=== PATIENT | male | born 1975 | race Caucasian/White ===

== ENCOUNTER 2023-02-22 16:55 | Inpatient (IN) | payer OTHER ==
[2023-02-22 17:42] VITALS: BMI 30.1
[2023-02-22] MEDS ORDERED: NICOTINE 10 MG CARTRIDGE (INHALER) IH PRN (18:28)
[2023-02-22] MEDS ORDERED: hydrOXYzine PAMOATE 25 MG CAPSULE (FP) PO PRN (18:28)
[2023-02-22] MEDS ORDERED: BENZONATATE 200 MG CAPSULE PO PRN (18:28)
[2023-02-22] MEDS ORDERED: IBUPROFEN 600 MG TABLET (FP) PO PRN (18:28)
[2023-02-22] MEDS ORDERED: BENZOCAINE/MENTHOL (CHLORASEPTIC ) LOZENGE MM PRN (18:28)
[2023-02-22] MEDS ORDERED: IBUPROFEN 400 MG TABLET (FP) PO PRN (18:28)
[2023-02-22] MEDS ORDERED: MAGNESIUM HYDROX 2400MG/30ML ORAL SUSPENSION 30 ML CUP PO PRN (18:28)
[2023-02-22] MEDS ORDERED: BISMUTH SUBSALICYLATE 524 MG/30 ML PO PRN (18:28)
[2023-02-22] MEDS ORDERED: ACETAMINOPHEN 325 MG TABLET (FP) PO PRN (18:28)
[2023-02-22] MEDS ORDERED: ONDANSETRON *ODT* 4 MG TABLET SL PRN (18:28)
[2023-02-22] MEDS ORDERED: LOPERAMIDE HCL 2 MG CAPSULE PO PRN (18:28)
[2023-02-22] MEDS ORDERED: chlordiazePOXIDE HCL 25 MG CAPSULE PO PRN (18:28)
[2023-02-22] MEDS ORDERED: METHOCARBAMOL 500 MG TABLET PO PRN (18:28)
[2023-02-22] MEDS ORDERED: NALOXONE HCL 0.4 MG/ML VIAL IM PRN (18:28)
[2023-02-22] MEDS ORDERED: DICYCLOMINE HCL 10 MG CAPSULE PO PRN (18:28)
[2023-02-22] MEDS ORDERED: guaiFENesin 600 MG TABLET.ER (FP) PO PRN (18:28)
[2023-02-22] MEDS ORDERED: MAG HYDROX/AL HYDROX/SIMETH 30 ML UNIT-DOSE CUP PO PRN (18:28)
[2023-02-22] MEDS ORDERED: NALOXONE HCL (KLOXXADO) 8 MG SPRAY NS PRN (18:28)
[2023-02-22] MEDS ORDERED: POLYETHYLENE GLYCOL (HEALTHYLAX) 3350 17 GM PACKET PO PRN (18:28)
[2023-02-22] MEDS: NICOTINE POLACRILEX 2 MG GUM BUC PRN (20:03)
[2023-02-22] MEDS: THIAMINE HCL 100 MG TABLET (FP) PO SCH (22:51)
[2023-02-22] MEDS: MELATONIN 5 MG TABLETS PO SCH (22:51)
[2023-02-22] MEDS: chlordiazePOXIDE HCL 25 MG CAPSULE PO SCH (22:51)
[2023-02-23] MEDS: chlordiazePOXIDE HCL 25 MG CAPSULE PO SCH ×4 (06:07→22:38)
[2023-02-23] MEDS ORDERED: PRENATAL VITAMINS W/ FOLIC ACID TABLET (FP) PO SCH (10:00)
[2023-02-23] MEDS: NICOTINE POLACRILEX 2 MG GUM BUC PRN ×4 (10:16→22:42)
[2023-02-23 11:08] LABS: HEMATOCRIT 40.1 % (35.4-49); HEMOGLOBIN 13.1 GM/dL (11.7-16.9); MCH 28.3 pg (25.7-33.7); MCHC 32.6 g/dl (32.0-35.9); MEAN CELL VOLUME 86.8 fl (80-96); MEAN PLT VOLUME 8.7 fl (7.5-11.1); PLATELET COUNT 353 10^3/uL (134-434); RBC 4.62 M/mm3 (4.00-5.60); WHITE BLOOD COUNT 7.8 K/mm3 (4.0-10.0)
[2023-02-23 11:22] LABS: POTASSIUM 4.1 mmol/L (3.5-5.1)
[2023-02-23 11:30] LABS: ALBUMIN 3.2 g/dl (3.4-5.0); BLOOD UREA NITROGEN 18.6 mg/dL (7-18); CALCIUM 9.1 mg/dL (8.5-10.1)
[2023-02-23 11:32] LABS: CREATININE 0.8 mg/dL (0.55-1.3)
[2023-02-23 11:34] LABS: BILIRUBIN,TOTAL 0.4 mg/dL (0.2-1)
[2023-02-23] MEDS: THIAMINE HCL 100 MG TABLET (FP) PO SCH (22:38)
[2023-02-23] MEDS: MELATONIN 5 MG TABLETS PO SCH (22:38)
[2023-02-24] MEDS ORDERED: chlordiazePOXIDE HCL 25 MG CAPSULE PO SCH (05:00)
[2023-02-24] MEDS: NICOTINE POLACRILEX 2 MG GUM BUC PRN ×2 (05:39→08:43)
[2023-02-24 09:14] VITALS: BP 114/72; PULSE 102; RESP 20; TEMP 96.9
[2023-02-25] MEDS ORDERED: chlordiazePOXIDE HCL 10 MG CAPSULE PO PRN
[2023-02-25] MEDS ORDERED: chlordiazePOXIDE HCL 10 MG CAPSULE PO SCH (05:00)
[2023-02-26] MEDS ORDERED: chlordiazePOXIDE HCL 10 MG CAPSULE PO SCH (05:00)
[2023-02-27] MEDS ORDERED: chlordiazePOXIDE HCL 10 MG CAPSULE PO ONE (05:00)
== END 2023-02-24 09:49 | disposition left against medical advice (07) | DRG 770 ==
LOC: YASAS 16:55 → Y6N 19:25
PROVIDERS: ADMIT Allergy & Immunology; ATTEND Surgery
PROC: HZ2ZZZZ Detoxification Services for Substance Abuse Treatment (ICD-10-PCS; principal; 2023-02-22)
DX: F10.230 Alcohol dependence with withdrawal, uncomplicated (principal); F14.20 Cocaine dependence, uncomplicated; F15.10 Other stimulant abuse, uncomplicated; F17.210 Nicotine dependence, cigarettes, uncomplicated; I10 Essential (primary) hypertension; M54.50 Low back pain, unspecified; S90.822A Blister (nonthermal), left foot, initial encounter; S90.821A Blister (nonthermal), right foot, initial encounter; X58.XXXA Exposure to other specified factors, initial encounter; Y92.9 Unspecified place or not applicable
CPT/HCPCS: 36415; 80053; 85027; 86780; 93005; 93010